=== PATIENT | male | born 1950 | race Caucasian/White ===

== ENCOUNTER 2016-02-24 15:30 | Inpatient (IN) | payer OTHER ==
[~2016-02-24] VITALS: Ht 185.4 cm; Wt 90.4 kg
[~2016-02-24 15:30] MED LIST: PRENATABS RX PO; TOPROL XL50 MG PO
--- NOTE | 2016-02-24 18:13 | DIAGNOSTIC IMAGING REPORT ---
PROCEDURE: CT HEAD WITHOUT CONTRAST INDICATION: Seizure. Altered mental status. History of EtOH. TECHNIQUE: Noncontrast axial images with sagittal and coronal reformations. COMPARISON: Compared to a head CT on 05/09/2015 and 05/05/2015. FINDINGS: There mild cortical atrophic changes. Brain and ventricles are otherwise normal. No evidence of an acute process or hemorrhage. Sinuses and mastoids are normal. IMPRESSION: 1. Negative head CT (mild atrophic changes). 2. Findings discussed with Dr. Juan David Salgado at [address] scans at this facility use dose modulation, iterative reconstruction, and/or weight-based dosing when appropriate to reduce radiation dose to as low as reasonably achievable.
--- NOTE | 2016-02-24 19:56 | ED ORDER SUMMARY ---
..... Patient: TORSTEN DOE OrderSheet [facility] VisitID: [id number] [place] [address] 66y, M Registration Date/Time: 02/24/2016 ORDER SHEET Weight: 95.2 kg (stated) Allergies: PCN GENERAL ORDERS: CBC w Diff Urgent (15:54 02/24/2016 Filomena Easton) (Ack 15:56 Larissaa ER Tech1) (16:06 MWinterer R.N.) CMP Urgent (15:54 02/24/2016 Filomena Easton) (Ack 15:56 RICHARDurca ER Tech1) (16:06 MWinterer R.N.) UA-Culture if indicated Urgent (15:54 02/24/2016 Filomena Easton) (Ack 15:56 Larissaa ER Tech1) (17:34 MWinterer R.N.) Amylase Urgent (15:54 02/24/2016 Fliomena Easton) (Ack 15:56 RICHARDurca ER Tech1) (16:06 MWinterer R.N.) Lipase Urgent (15:54 02/24/2016 Filomena Easton) (Ack 15:56 Larissaa ER Tech1) (16:06 MWinterer R.N.) Urine Drug Screen Urgent (15:54 02/24/2016 Filomena Easton) (Ack 15:56 Larissaa ER Tech1) (17:34 MWinterer R.N.) Ethyl Alcohol Urgent (15:54 02/24/2016 Filomena Easton) (Ack 15:56 RICHARDurca ER Tech1) (16:06 MWinterer R.N.) CT Head wo Cont (Seizure) Urgent (17:26 02/24/2016 Filomena Easton) (Ack 17:28 RICHARDurca ER Tech1) (17:59 MWinterer R.N.) MEDICATION ORDERS: IV FLUIDS: IV NS : initial bolus none -, then 1000 mL/hr for X1 (NOW) (15:53 02/24/2016 Filomena Easton) (Ack 16:33 MWinterer R.N.) (16:44 MWinterer R.N.) Ativan IV 1 mg (HIGH ALERT MEDICATION, NOW) (15:54 02/24/2016 Filomena Easton) (16:07 Kwabena Martins) ORDER SHEET NOTES: [Electronically signed by Juan David Salgado Dr. (21:38 02/24/2016)] [Electronically signed by Yossi Rosales R.N. (01:14 02/25/2016)] [Electronically locked/signed by Yossi Rosales R.N. (01:14 02/25/2016)]
--- NOTE | 2016-02-24 19:56 | ED ORDER SUMMARY ---
..... Patient: TORSTEN DOE OrderSheet [facility] VisitID: [id number] [place] [address] 66y, M Registration Date/Time: 02/24/2016 ORDER SHEET Weight: 95.2 kg (stated) Allergies: PCN GENERAL ORDERS: CBC w Diff Urgent (15:54 02/24/2016 Filomena Easton) (Ack 15:56 Larissaa ER Tech1) (16:06 MWinterer R.N.) CMP Urgent (15:54 02/24/2016 Filomena Easton) (Ack 15:56 RICHARDurca ER Tech1) (16:06 MWinterer R.N.) UA-Culture if indicated Urgent (15:54 02/24/2016 Filomena Easton) (Ack 15:56 Larissaa ER Tech1) (17:34 MWinterer R.N.) Amylase Urgent (15:54 02/24/2016 Filomena Easton) (Ack 15:56 RICHARDurca ER Tech1) (16:06 MWinterer R.N.) Lipase Urgent (15:54 02/24/2016 Filomena Easton) (Ack 15:56 Larissaa ER Tech1) (16:06 MWinterer R.N.) Urine Drug Screen Urgent (15:54 02/24/2016 Filomena Easton) (Ack 15:56 Larissaa ER Tech1) (17:34 MWinterer R.N.) Ethyl Alcohol Urgent (15:54 02/24/2016 Filomena Easton) (Ack 15:56 RICHARDurca ER Tech1) (16:06 MWinterer R.N.) CT Head wo Cont (Seizure) Urgent (17:26 02/24/2016 Filomena Easton) (Ack 17:28 RICHARDurca ER Tech1) (17:59 MWinterer R.N.) MEDICATION ORDERS: IV FLUIDS: IV NS : initial bolus none -, then 1000 mL/hr for X1 (NOW) (15:53 02/24/2016 Filomena Easton) (Ack 16:33 MWinterer R.N.) (16:44 MWinterer R.N.) Ativan IV 1 mg (HIGH ALERT MEDICATION, NOW) (15:54 02/24/2016 Filomena Easton) (16:07 Kwabena Martins) ORDER SHEET NOTES: [Electronically signed by Juan David Salgado Dr. (21:38 02/24/2016)] [Electronically signed by Yossi Rosales R.N. (01:14 02/25/2016)] [Electronically locked/signed by Yossi Rosales R.N. (01:14 02/25/2016)]
--- NOTE | 2016-02-24 19:56 | ED NURSING NOTES ---
Clinical Report - Nurses [facility] [address] [place] [address] 02/24/2016 15:29 Patient: TORSTEN DOE TRIAGE Triage time 15:37 Feb 24 2016. Acuity: LEVEL 3. Chief Complaint: SEIZURE (single episode). Alert. No acute distress. SHAYE COMA SCORE: [place] Coma Scale: 15- eyes open spontaneously (4); best verbal response- oriented x 4 (5); best motor response- obeys commands (6). --15:41 Tracee Casillas R.N. 15:37 02/24/16. BP: 147/88. HR: 113. RR: 18. O2 saturation: 93%. Temp: 99.9 F. Pain level now 0/10. --15:41 Tracee Casillas R.N. Weight: 95.2 kg stated. Height/Length: 73 inches Per Patient. BMI: 27.7. --15:36 Tracee Casillas R.N. Medications None. --15:40 Tracee Casillas R.N. Medication/allergy information source: the patient. --15:41 Tracee Casillas R.N. Allergies PCN. --15:40 Tracee Casillas R.N. History Arrived by EMS. Historian: patient. Primary physician (none). ( Witnessed Seizure at home by his . Post Ictal when EMS arrived. Hx of seizures.). This occurred just prior to arrival. 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 PAST MEDICAL HX: Seizures. Has not received seasonal influenza immunization. SOCIAL HX: Former smoker. Occasional alcohol use. History of drug use: marijuana. (6 months ago). No infectious disease exposure. FALL RISK ASSESSMENT: Fall risk assessment completed. No fall risk identified. NUTRITIONAL RISK ASSESSMENT: The nutritional risk assessment revealed no deficiencies. FUNCTIONAL ASSESSMENT: Functional assessment: no impairments noted. LEARNING NEEDS ASSESSMENT: The learning needs assessment revealed no barriers. SKIN INTEGRITY ASSESSMENT: Skin integrity risk assessment completed. No skin integrity risk identified. --15:41 Tracee Casillas R.N. PROBLEMS: Changed Mental Status. Abnormal Liver Function Test. Vertigo. Alcoholism. Lifestyle / Substance Problems. Alcohol Withdrawal. UTI - Urinary Tract Infection. Pancreatitis. Back Pain. Hypertension. Laceration. Insect Bite(s). Immunizations. Abscess. Tetanus Status. --15:40 Tracee Casillas R.N. ADDITIONAL SURGERIES: C5/C6 fusion. Laminectomy. Rotator Cuff Surgery. --15:40 Tracee Casillas R.N. Interventions ID band on patient. To room. --15:41 Tracee Casillas R.N. PHYSICAL ASSESSMENT GENERAL / NEURO / PSYCH: Oriented X 4. [place] Coma Scale: 15- eyes open spontaneously (4); best verbal response- oriented x 4 (5); best motor response- obeys commands (6). HEENT: Pupils equal, round and reactive to light. RESPIRATORY: Respirations not labored. CVS: Normal sinus rhythm noted. GI / : Bowel sounds within normal limits. SKIN: Skin is warm and dry. --20:20 Yossi Rosales R.N. NURSING PROGRESS NOTES Pulse oximeter and NIBP monitor placed on patient. Patient gowned. Reassurance given. Seizure precautions initiated. --15:41 Tracee Casillas R.N. Patient ready for evaluation- ED physician notified. --15:41 Tracee Casillas R.N. 16:06 02/24/2016 Site #1 started via IV in the right forearm with an 20g angiocath, with aseptic technique and good blood return; two attempts. Blood drawn: rainbow set. Labeled in the presence of the patient and sent to the lab. Saline lock flushed with 10 mL saline. --16:06 Millie Awad R.N. 16:07 02/24/2016 Ativan (LORazepam) IVP 1 mg given over 2 minute(s) via site #1. Allergies verified, confirmed 5 rights and sedative warning given to the patient. IV patency established. IV site checked: no pain, redness, or swelling. IV flushed thoroughly pre- and post-medication administration. IVP given by RN. --16:07 Millie Awad R.N. 16:44 02/24/2016 Started bag #1 1000 mL IV Fluids IV NS (Saline); at 999 mL/hr over 1 hour(s) via site #1 via IV pump. Allergies verified and confirmed 5 rights. IV patency established. IV site checked: no pain, redness, or swelling. IV flushed thoroughly pre- and post-medication administration. --16:44 Millie Awad R.N. 17:35 02/24/16. Checked patient name and birthdate: patient confirmed urine collected with return of yellow-colored clear urine; sample sent to lab. Specimen labeled in the presence of the patient. --17:35 Millie Awad R.N. 17:36 02/24/2016 IV Fluids IV NS Discontinued: bag #1 infused. Total amount infused: 1000 mL. IV patency established. IV site checked: no pain, redness, or swelling. IV flushed thoroughly. --17:51 Millie Awad R.N. 17:52 02/24/16. BP: 145/82 taken on the right arm, while sitting. HR: 114. RR: 18. O2 saturation: 97% on room air. Temp: 98.4 F. --17:54 Usman Peter 19:28 02/24/16. BP: 115/76. HR: 109. RR: 15. O2 saturation: 95%. Temp: 98.6 F. Pain level now: 0/10. --19:29 Millie Awad R.N. ( pt resting in bed eating butter finger). --19:51 Yossi Rosales R.N. 19:51 02/24/16. BP: 156/80. HR: 117. O2 saturation: 100%. --19:51 Yossi Rosales R.N. DISPOSITION / DISCHARGE Admitted. --21:29 Yossi Rosales R.N. 21:28 02/24/16. BP: 136/88. HR: 107. RR: 20. O2 saturation: 97%. Temp: 98.5 F. Pain level now 0/10. --21:29 Yossi Rosales R.N. Report was given to a nurse in person. Report included patient's care, treatment, medications, reviewed medication reconcilliation, and condition (including any recent changes or anticipated changes). All questions were answered. Report was acknowledged. ( Pt to be admitted verbalized understanding). --21:46 Yossi Rosales R.N. Departure time: 22:11. Transported via stretcher by transport team. --22:11 Laurie Joe R.N. Locked/Released at 02/25/2016 1:14 by Yossi Rosales R.N.
--- NOTE | 2016-02-24 19:56 | ED CLINICAL REPORT ---
Clinical Report - Physicians/Mid Levels [facility] [address] [place] [address] 02/24/2016 15:29 Patient: TORSTEN DOE Time Seen: 15:53; initial patient contact. Arrived- By ambulance. Historian- patient and family. HISTORY OF PRESENT ILLNESS Chief Complaint: SINGLE SEIZURE. This occurred just prior to arrival. Patient was last known well (this AM). The patient has recovered. Seizure was witnessed. Had a single isolated seizure. Generalized motor activity observed. Post-ictally has had confusion. No speech difficulty post-ictally, weakness post-ictally, numbness post-ictally or headache post-ictally. No injuries noted. The patient has had moderate alcohol consumption recently. Last drink was less than 12 hours ago. Similar symptoms previously: Several times. Recent medical care: Not recently seen/assessed. REVIEW OF SYSTEMS No fever, chest pain, palpitations, difficulty breathing or nausea. No vomiting, back pain, neck pain, alteration in mental status or headache. No head injury. He had seizure activity. All systems otherwise negative, except as recorded above. PAST HISTORY ( Changed Mental Status. Abnormal Liver Function Test. Vertigo. Alcoholism. Lifestyle / Substance Problems. Alcohol Withdrawal. UTI - Urinary Tract Infection. Pancreatitis. Back Pain. Hypertension. Laceration. Insect Bite(s). Immunizations. Abscess. Tetanus Status. SURGERIES: C5/C6 fusion. Laminectomy. Rotator Cuff Surgery.). Medications: None. Allergies: PCN. SOCIAL HISTORY Former smoker. Alcohol use. Patient is a longstanding alcoholic. History of drug use: marijuana. FAMILY HISTORY No history of seizure disorder. ADDITIONAL NOTES The nursing notes have been reviewed with agreement regarding the chief complaint, PMH and patient medications and allergies. PHYSICAL EXAM Appearance: No acute distress. Appears post-ictal. No odor of alcohol. Eyes: Pupils equal, round and reactive to light. No nystagmus. Extraocular movements normal. ENT: Normal ENT inspection. Moist mucous membranes. Neck: Normal inspection. Neck supple. CVS: Normal heart rate and rhythm. Heart sounds normal. Respiratory: No respiratory distress. Breath sounds normal. Abdomen: Soft and nontender. No organomegaly. Back: Normal inspection. Skin: Skin warm and dry. Normal skin color. No rash. Extremities: No lower extremity edema. Neuro: Alert. Oriented X 3. Mood/affect normal. Speech normal. Cranial nerves normal (as tested). No cerebellar findings. No motor deficit. No sensory deficit. Reflexes normal. LABS, X-RAYS, AND EKG CT Head: (1. Negative head CT (mild atrophic changes).). Head CT performed without contrast. Prior studies were not available for comparison. The study was interpreted by the radiologist and discussed with the radiologist. Interpretation time: 1809. Laboratory Tests: UA-Culture if indicated: (COBY: 02/24/2016 17:25) ( MsgRcvd 02/24/2016 18:06) Final results Test Result Flag Units (Reference) URINE COLOR YELLOW URINE APPEARANCE CLEAR URINE GLUCOSE NEGATIVE (NEGATIVE) URINE BILIRUBIN NEGATIVE (NEGATIVE) URINE KETONE TRACE (NEGATIVE) URINE SPECIFIC GRAVITY 1.020 (1.010-1.030) URINE PH 7.0 (5.0-8.0) URINE PROTEIN NEGATIVE (NEGATIVE) URINE UROBILINOGEN 1.0 EU/dL (0.2-1.0) URINE NITRITE NEGATIVE (NEGATIVE) URINE BLOOD TRACE-LYSED (NEGATIVE) URINE LEUK ESTERASE NEGATIVE (NEGATIVE) URINE RBC 0-1 rbc/hpf (0-1) URINE WBC RARE wbc/hpf (0-1) URINE EPITHELIAL CELLS RARE EPI/hpf (0-5) URINE BACTERIA NONE SEEN (NONE SEEN) URINE COMMENT CULT NOT INDICATED 1+ MUCUSURINE CULTURES ARE SET-UP BASED ON THE FOLLOWING CRITERIA:POSITIVE NITRITEPOSITIVE LEUKOCYTE ESTERASEGREATER THAN 10 WHITE BLOOD CELLSMODERATE (2+) OR GREATER BACTERIA CBC w Diff: (COBY: 02/24/2016 16:05) ( MsgRcvd 02/24/2016 16:13) Final results Test Result Flag Units (Reference) WHITE BLOOD COUNT 3.3 L K/uL (4.5-11.5) RED BLOOD COUNT 4.24 L M/uL (4.50-5.90) HEMOGLOBIN 13.9 gm/dL (13.5-17.5) HEMATOCRIT 41.2 % (41.0-53.0) MEAN CELL VOLUME 97 fL (80-100) MEAN CORPUSCULAR HGB 33 pg (26-34) MEAN CORPUSCULAR HGB CONC 34 g/dL (31-37) RED CELL DISTRIBUTION WIDTH 16.1 H % (11.6-14.8) PLATELET COUNT 158 K/uL (150-400) NEUTROPHIL % 62.8 % (50-75) LYMPH % 22.4 L % (25-40) MONO % 13.0 % (3-14) EOSINOPHIL % 0.8 % (0-4) BASOPHIL % 1.0 % (0-2) Urine Drug Screen: (COBY: 02/24/2016 17:25) ( MsgRcvd 02/24/2016 18:27) Final results Test Result Flag Units (Reference) AMPHETAMINE/METHAMPHETAMINE NEGATIVE (NEGATIVE) BARBITURATE NEGATIVE (NEGATIVE) BENZODIAZEPINE NEGATIVE (NEGATIVE) CANNABINOID POSITIVE H (NEGATIVE) COCAINE NEGATIVE (NEGATIVE) ECSTASY NEGATIVE (NEGATIVE) METHADONE NEGATIVE (NEGATIVE) OPIATE NEGATIVE (NEGATIVE) The urine drug screen is a qualitative screening test fordrug overdose and abuse. All screen results should beconsidered as presumptive.Drugs screened for are as follows:BenzodiazepinesCocaineAmphetamines/MetamphetaminesTHC (Tetrahydrocannabinol)OpiatesBarbituratesEcstasyMethadonePositive results are unconfirmed. For confirmation, notifythe lab for the specimen to be sent to the reference lab.All confirmations must be performed by a differentmethodology.The ingestion of natural herbal and plant productscontaining Ephedra/Ephedra metabolites can produce in urineone or more substances capable of cross reacting withamphetamine/methamphetamine immunoassays. These testsprovide a preliminary result only. A more specificalternative chemical method must be used to obtain aconfirmed analytical result. CMP: (COBY: 02/24/2016 16:05) ( [facility] [place] 02/24/2016 16:27) Final results Test Result Flag Units (Reference) GLUCOSE 171 H mg/dL (70-110) BUN 11 mg/dL (7-18) CREATININE 1.0 mg/dL (0.6-1.3) Estimated GFR >60 mL/min Estimated GFR- >60 mL/min Note: Persistent reduction over 3 months in eGFR<60 mL/min/1.73 m2 defines CKD. Patients with eGFR values>=60 mL/min/1.73 m2 may also have CKD if evidence ofpersistent proteinuria. Additional information may be foundat www.kidney.org. SODIUM 138 mmol/L (136-145) POTASSIUM 3.0 L mmol/L (3.5-5.1) CHLORIDE 96 L mmol/L (98-107) CARBON DIOXIDE 30 mmol/L (21-32) CALCIUM 8.5 mg/dL (8.5-10.1) TOTAL PROTEIN 7.3 g/dL (6.4-8.2) ALBUMIN 3.6 g/dL (3.3-5.0) BILIRUBIN, TOTAL 0.9 mg/dL (0.0-1.0) ALKALINE PHOSPHATASE 104 U/L (46-116) AST (SGOT) 462 H U/L (15-37) ALT (SGPT) 355 H U/L (12-78) LIPASE 941 H U/L (73-393) AMYLASE 89 U/L (25-115) ETHYL ALCOHOL <3 L mg/dL (3-10) . PROGRESS AND PROCEDURES Discussed case with hospitalist, (call returned 19:50 Dr. Alfred). Agreed upon treatment plan and decision to place in observation. Health care provider will see patient in hospital. Disposition: Condition: good and stable. CLINICAL IMPRESSION 02/24/2016 19:28 BP: 115/76. HR: 109. RR: 15. O2 saturation: 95%. Temp: 98.6 F. Pain level now: 0/10. Generalized seizure associated with alcohol withdrawal.No history of poorly controlled epilepsy, history of epilepsy that is treatment resistant or status epilepticus. Vital Signs: have been reviewed. Blood pressure normal. Tachycardic. Respiratory rate normal. Temperature normal. Oxygen saturation normal. Abnormal liver function test: AST/SGOT and ALT/SGPT. (Electronically signed by Juan David Salgado Dr. 02/24/2016 21:38)
--- NOTE | 2016-02-24 19:56 | ED NURSING NOTES ---
Clinical Report - Nurses [facility] [address] [place] [address] 02/24/2016 15:29 Patient: TORSTEN DOE TRIAGE Triage time 15:37 Feb 24 2016. Acuity: LEVEL 3. Chief Complaint: SEIZURE (single episode). Alert. No acute distress. SHAYE COMA SCORE: [place] Coma Scale: 15- eyes open spontaneously (4); best verbal response- oriented x 4 (5); best motor response- obeys commands (6). --15:41 Tracee Casillas R.N. 15:37 02/24/16. BP: 147/88. HR: 113. RR: 18. O2 saturation: 93%. Temp: 99.9 F. Pain level now 0/10. --15:41 Tracee Casillas R.N. Weight: 95.2 kg stated. Height/Length: 73 inches Per Patient. BMI: 27.7. --15:36 Tracee Casillas R.N. Medications None. --15:40 Tracee Casillas R.N. Medication/allergy information source: the patient. --15:41 Tracee Casillas R.N. Allergies PCN. --15:40 Tracee Casillas R.N. History Arrived by EMS. Historian: patient. Primary physician (none). ( Witnessed Seizure at home by his . Post Ictal when EMS arrived. Hx of seizures.). This occurred just prior to arrival. 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 PAST MEDICAL HX: Seizures. Has not received seasonal influenza immunization. SOCIAL HX: Former smoker. Occasional alcohol use. History of drug use: marijuana. (6 months ago). No infectious disease exposure. FALL RISK ASSESSMENT: Fall risk assessment completed. No fall risk identified. NUTRITIONAL RISK ASSESSMENT: The nutritional risk assessment revealed no deficiencies. FUNCTIONAL ASSESSMENT: Functional assessment: no impairments noted. LEARNING NEEDS ASSESSMENT: The learning needs assessment revealed no barriers. SKIN INTEGRITY ASSESSMENT: Skin integrity risk assessment completed. No skin integrity risk identified. --15:41 Tracee Casillas R.N. PROBLEMS: Changed Mental Status. Abnormal Liver Function Test. Vertigo. Alcoholism. Lifestyle / Substance Problems. Alcohol Withdrawal. UTI - Urinary Tract Infection. Pancreatitis. Back Pain. Hypertension. Laceration. Insect Bite(s). Immunizations. Abscess. Tetanus Status. --15:40 Tracee Casillas R.N. ADDITIONAL SURGERIES: C5/C6 fusion. Laminectomy. Rotator Cuff Surgery. --15:40 Tracee Casillas R.N. Interventions ID band on patient. To room. --15:41 Tracee Casillas R.N. PHYSICAL ASSESSMENT GENERAL / NEURO / PSYCH: Oriented X 4. [place] Coma Scale: 15- eyes open spontaneously (4); best verbal response- oriented x 4 (5); best motor response- obeys commands (6). HEENT: Pupils equal, round and reactive to light. RESPIRATORY: Respirations not labored. CVS: Normal sinus rhythm noted. GI / : Bowel sounds within normal limits. SKIN: Skin is warm and dry. --20:20 Yossi Rosales R.N. NURSING PROGRESS NOTES Pulse oximeter and NIBP monitor placed on patient. Patient gowned. Reassurance given. Seizure precautions initiated. --15:41 Tracee Casillas R.N. Patient ready for evaluation- ED physician notified. --15:41 Tracee Casillas R.N. 16:06 02/24/2016 Site #1 started via IV in the right forearm with an 20g angiocath, with aseptic technique and good blood return; two attempts. Blood drawn: rainbow set. Labeled in the presence of the patient and sent to the lab. Saline lock flushed with 10 mL saline. --16:06 Millie Awad R.N. 16:07 02/24/2016 Ativan (LORazepam) IVP 1 mg given over 2 minute(s) via site #1. Allergies verified, confirmed 5 rights and sedative warning given to the patient. IV patency established. IV site checked: no pain, redness, or swelling. IV flushed thoroughly pre- and post-medication administration. IVP given by RN. --16:07 Millie Awad R.N. 16:44 02/24/2016 Started bag #1 1000 mL IV Fluids IV NS (Saline); at 999 mL/hr over 1 hour(s) via site #1 via IV pump. Allergies verified and confirmed 5 rights. IV patency established. IV site checked: no pain, redness, or swelling. IV flushed thoroughly pre- and post-medication administration. --16:44 Millie Awad R.N. 17:35 02/24/16. Checked patient name and birthdate: patient confirmed urine collected with return of yellow-colored clear urine; sample sent to lab. Specimen labeled in the presence of the patient. --17:35 Millie Awad R.N. 17:36 02/24/2016 IV Fluids IV NS Discontinued: bag #1 infused. Total amount infused: 1000 mL. IV patency established. IV site checked: no pain, redness, or swelling. IV flushed thoroughly. --17:51 Millie Awad R.N. 17:52 02/24/16. BP: 145/82 taken on the right arm, while sitting. HR: 114. RR: 18. O2 saturation: 97% on room air. Temp: 98.4 F. --17:54 Usman Peter 19:28 02/24/16. BP: 115/76. HR: 109. RR: 15. O2 saturation: 95%. Temp: 98.6 F. Pain level now: 0/10. --19:29 Millie Awad R.N. ( pt resting in bed eating butter finger). --19:51 Yossi Rosales R.N. 19:51 02/24/16. BP: 156/80. HR: 117. O2 saturation: 100%. --19:51 Yossi Rosales R.N. DISPOSITION / DISCHARGE Admitted. --21:29 Yossi Rosales R.N. 21:28 02/24/16. BP: 136/88. HR: 107. RR: 20. O2 saturation: 97%. Temp: 98.5 F. Pain level now 0/10. --21:29 Yossi Rosales R.N. Report was given to a nurse in person. Report included patient's care, treatment, medications, reviewed medication reconcilliation, and condition (including any recent changes or anticipated changes). All questions were answered. Report was acknowledged. ( Pt to be admitted verbalized understanding). --21:46 Yossi Rosales R.N. Departure time: 22:11. Transported via stretcher by transport team. --22:11 Laurie Joe R.N. Locked/Released at 02/25/2016 1:14 by Yossi Rosales R.N.
[2016-02-24 22:26] VITALS: BP 149/95
--- NOTE | 2016-02-24 23:23 | HISTORY AND PHYSICAL ---
ADMITTED: 02/24/2016 CHIEF COMPLAINT: 1. Seizure HISTORY OF PRESENT ILLNESS: This is a 66-year-old alcoholic with a history of alcohol withdrawal seizures who was sitting on the couch this evening and, per his , had a seizure. The patient states that he was watching his and then has no memory of what happened until approximately an hour later when he remembers being in the emergency department. Per this patient's , he was sitting on the couch watching TV when she started noticing tonic-clonic motion that lasted a couple of minutes. He did not lose bowel or bladder control; however, did have postictal state, including confusion , after the seizure which then cleared while in the emergency department in an appropriate amount of time. The patient denies ever having blackouts in the past; however, he has had a couple of alcohol withdrawal seizures. The patient states that he goes through a fifth every 2 days and has for the last 4-5 months. Four to five months ago, he had gone several months without alcohol and then relapsed. He has been drinking this amount of alcohol for several years. MEDICAL/SURGICAL HISTORY: Past medical history of alcohol abuse with a history of seizures, history of pancreatitis, and history of hypertension. Surgical history: C5-C6 fusion. Two lumbar surgeries including a laminectomy. Rotator cuff surgery. MEDICATIONS: 1. None. ALLERGIES: 1. PENICILLIN. SOCIAL HISTORY: The patient denies any recent drug or alcohol use; however, does state that approximately once monthly he will smoke marijuana, but has not done this in several months. He states that he quit smoking cigarettes 10-15 years ago and at that time was smoking approximately half a pack a day and had done so for 10-15 years. FAMILY HISTORY: Noncontributory. REVIEW OF SYSTEMS: Official 12-point review of systems was negative, except as per HPI, and a rare cough that is now productive, and generalized musculoskeletal pain including low back pain. PHYSICAL EXAMINATION: VITAL SIGNS: Blood pressure is 147/88, pulse is 113, respiratory rate of 18, O2 saturation 93% on room air, temperature is 99.9 degrees Fahrenheit. GENERAL: This is a middle-aged male, sitting in bed in no apparent distress. HEENT: Head is atraumatic, normocephalic. Pupils are equal, round, and reactive to light with accommodation bilaterally. Extraocular muscles are intact bilaterally. Oropharynx is nonerythematous without exudates. NECK: Trachea is midline. There is no JVD. HEART: S1, S2, irregular rhythm, mildly tachycardic. No S3, S4, gallops or rubs. LUNGS: Clear to auscultation bilaterally. ABDOMEN: Soft, nontender, nondistended without masses. Bowel sounds are active. There is a 3 cm hepatomegaly noted. EXTREMITIES: No peripheral edema. NEUROLOGIC: CN II-XII are intact bilaterally with normal strength in upper and lower extremities bilaterally. LAB/IMAGING: White blood cell count of 3.3, hemoglobin of 13.9, hematocrit 41.2, platelets of 158. Sodium of 138, potassium of 3, chloride of 96, bicarbonate 30, BUN of 11, creatinine of 1.0, glucose of 171. AST of 462, ALT of 355, calcium of 8.5, total protein is 7.3, albumin of 3.6, total bilirubin 0.9, lipase of 941, alkaline phosphatase of 104, amylase of 189. Alcohol is less than 3. UA is negative. Urine toxicology did come back positive for HTC. Other studies: CT of the head is negative, except for mild atrophic cortical changes. IMPRESSION: This is a 66-year-old male with a history of alcohol abuse and withdrawal seizures, whose has been watering down his alcohol and he had a seizure, a classic tonic-clonic seizure, this evening. The patient is now alert and oriented and appropriate. PLAN: 1. Fluids, electrolytes, and nutrition: Will add on a magnesium and a phosphorus. Otherwise, the patient will be on seizure precautions and a clear liquid diet. 2. Substance abuse: The patient will be on alcohol withdrawal protocol and seizure precautions. He will be monitored very closely. I have added on an INR to further assess liver function. 3. Prophylaxis: The patient is only on clears; therefore, I have asked for gastrointestinal ulcer prophylaxis with famotidine. We will also do venous thrombosis prophylaxis with sequential compression devices. 4. CODE STATUS: FULL CODE.
[2016-02-24 23:34] VITALS: BP 173/93
[2016-02-24 23:35] VITALS: BP 143/86
[2016-02-24 23:41] VITALS: BP 140/79
[2016-02-25] VITALS (8 sets, daily range): BP systolic 122–143; BP diastolic 76–89
--- NOTE | 2016-02-25 01:15 | ED DISCHARGE INSTRUCTIONS ---
Patient: TORSTEN DOE General Instructions [facility] VisitID: [id number] [place] [address] 66y, M Registration Date/Time: 02/24/2016 02/24/2016 19:28 BP: 115/76. HR: 109. RR: 15. O2 saturation: 95%. Temp: 98.6 F. Pain level now: 0/10. Generalized seizure associated with alcohol withdrawal.No history of poorly controlled epilepsy, history of epilepsy that is treatment resistant or status epilepticus. Vital Signs: have been reviewed. Blood pressure normal. Tachycardic. Respiratory rate normal. Temperature normal. Oxygen saturation normal. Abnormal liver function test: AST/SGOT and ALT/SGPT. (Electronically signed by Juan David Salgado Dr. 02/24/2016 21:38)
--- NOTE | 2016-02-25 01:15 | ED MED RECONCILIATION SUMMARY ---
Patient: TORSTEN DOE Medication Reconciliation Report [facility] VisitID: [id number] [address] [place] [address] 66y, M Registration Date/Time: 02/24/2016 Weight: 95.2 kg Height/Length: 73 in. BMI: 27.7 ALLERGIES: PCN The patient's Home Medications are listed below: NONE. The source(s) of the original Home Medication information: patient The following Medications were given to the patient in the Emergency Department: Ativan [IVP] IVP 1 mg, administered: 02/24/2016 4:07:00 PM IV NS IV Fluids bolus 0, then 999 mL/hr, administered: 02/24/2016 4:44:00 PM The following Medications were prescribed to the patient: None.
--- NOTE | 2016-02-25 01:15 | ED DISCHARGE INSTRUCTIONS ---
Patient: TORSTEN DOE General Instructions [facility] VisitID: [id number] [place] [address] 66y, M Registration Date/Time: 02/24/2016 02/24/2016 19:28 BP: 115/76. HR: 109. RR: 15. O2 saturation: 95%. Temp: 98.6 F. Pain level now: 0/10. Generalized seizure associated with alcohol withdrawal.No history of poorly controlled epilepsy, history of epilepsy that is treatment resistant or status epilepticus. Vital Signs: have been reviewed. Blood pressure normal. Tachycardic. Respiratory rate normal. Temperature normal. Oxygen saturation normal. Abnormal liver function test: AST/SGOT and ALT/SGPT. (Electronically signed by Juan David Salgado Dr. 02/24/2016 21:38)
--- NOTE | 2016-02-25 01:15 | ED MED RECONCILIATION SUMMARY ---
Patient: TORSTEN DOE Medication Reconciliation Report [facility] VisitID: [id number] [address] [place] [address] 66y, M Registration Date/Time: 02/24/2016 Weight: 95.2 kg Height/Length: 73 in. BMI: 27.7 ALLERGIES: PCN The patient's Home Medications are listed below: NONE. The source(s) of the original Home Medication information: patient The following Medications were given to the patient in the Emergency Department: Ativan [IVP] IVP 1 mg, administered: 02/24/2016 4:07:00 PM IV NS IV Fluids bolus 0, then 999 mL/hr, administered: 02/24/2016 4:44:00 PM The following Medications were prescribed to the patient: None.
--- NOTE | 2016-02-25 01:15 | ED MAR SUMMARY ---
..... Medication Administration Record [facility] [address] [place] [address] Patient: TORSTEN DOE Visit ID: [id number] 66y, M Weight: 95.2 kg Height/Length: 73 in BMI: 27.7 ALLERGIES: PCN Given 16:07 02/24/2016 Millie Awad R.N. Medication Administered: ATIVAN [IVP] (LORAZEPAM), Dose: 1 mg IVP over 2 minute(s), Site: #1 right forearm. Medication Ordered: Ativan IV 1 mg (HIGH ALERT MEDICATION, NOW). Start 16:44 02/24/2016 Millie Awad RMarisol, Stop 17:36 02/24/2016 Millie Awad R.N. Medication Administered: IV NS (SALINE), Dose: IV Fluids over 1 hour(s), Rate: 999 mL/hr, Dispensed: 1000 mL bag, Site: #1 right forearm. Medication Ordered: IV NS : initial bolus none -, then 1000 mL/hr for X1 (NOW).
--- NOTE | 2016-02-25 01:15 | ED MAR SUMMARY ---
..... Medication Administration Record [facility] [address] [place] [address] Patient: TORSTEN DOE Visit ID: [id number] 66y, M Weight: 95.2 kg Height/Length: 73 in BMI: 27.7 ALLERGIES: PCN Given 16:07 02/24/2016 Millie Awad R.N. Medication Administered: ATIVAN [IVP] (LORAZEPAM), Dose: 1 mg IVP over 2 minute(s), Site: #1 right forearm. Medication Ordered: Ativan IV 1 mg (HIGH ALERT MEDICATION, NOW). Start 16:44 02/24/2016 Millie Awad RMarisol, Stop 17:36 02/24/2016 Millie Awad R.N. Medication Administered: IV NS (SALINE), Dose: IV Fluids over 1 hour(s), Rate: 999 mL/hr, Dispensed: 1000 mL bag, Site: #1 right forearm. Medication Ordered: IV NS : initial bolus none -, then 1000 mL/hr for X1 (NOW).
--- NOTE | 2016-02-25 07:29 | Progress Note ---
Subjective General Note Date: February 25, 2016 Admission Date: February 24, 2016 Hospital Day: 2 PCP: Unknown Status: Observation Advanced Directive: FULL CODE Room: 210-A Brief History: The patient is a 66-year-old white male with a significant past medical history of alcohol abuse/dependence, hypertension who presented to [facility] emergency department on the day of admission secondary to complaints of seizure. [facility] ER evaluation was consistent with findings of seizure probable alcohol withdrawal, alcohol abuse/dependence, elevated lipase. Secondary to the above, the patient was admitted by Joanna Alfred M.D. for further evaluation and treatment For other history present illness, past medical history, family history, social history, review of systems, and admission physical examination please see the patient's history and physical examination and ER visit note in the patient's medical record. Subjective: The patient is confused and lethargic this a.m. status post initiation of alcohol withdrawal protocol. Seizure noted last evening. No subsequent seizures. Patient requests: None Medications and Allergies Medications Current Medications Sig/Arun Start time Last Medication Dose Route Stop Time Status Admin Lorazepam 1 MG Q6H 02/27 0000 AC PO 02/27 1900 Lorazepam 1 MG Q6H 02/27 0000 AC IV 02/27 1900 Lorazepam 1 MG Q6H 02/26 0000 AC PO 02/26 1900 Lorazepam 1 MG Q6H 02/26 0000 AC IV 02/26 1900 Lorazepam 1 MG Q4H / 0000 AC PO 02/25 2100 Lorazepam 1 MG Q4H 02/25 0000 AC IV 02/25 2100 Influenza Virus 0.5 ML 0900 02/24 0900 AC Vaccine IM 02/24 1800 Multivit/ 1 TAB DAILY 02/24 0900 AC Folic Acid/Iron PO Thiamine HCl 100 MG DAILY 02/24 0900 AC PO Magnesium Sulfate 50 ML 0600 ONE 02/24 0600 AC 02/24 IV 02/24 0759 0551 Famotidine/Sodium 50 ML Q12HR 02/24 0130 AC 02/24 Chloride IV 0243 Lorazepam 2 MG Q6H 02/24 0015 AC PO 02/24 1900 Lorazepam 2 MG Q6H 02/24 0015 AC 02/24 IV 02/24 1900 0550 Lorazepam 0.5 MG Q30MIN PRN 02/24 0015 AC PO Lorazepam 0.5 MG Q30MIN PRN 02/24 0015 AC IV Diazepam 5 MG PRN PRN 02/23 2214 AC 02/23 IV 2328 Docusate Sodium 250 MG BID PRN 02/23 2214 AC PO Ondansetron HCl 4 MG Q6H PRN 02/23 2214 AC 02/24 IV 0139 Sodium Chloride 1,000 ML ASDIRECTED 02/23 2214 AC IV Allergies Coded Allergies: Codeine (PROBABLY NOT ALLERGIC, PER PT 02/24/16) Penicillins (RESPITORY ARREST 02/24/16) Physical Exam Vital Signs / I&Os Vital Signs Date Time Temp Pulse Resp B/P Pulse O2 O2 Flow FiO2 Ox Delivery Rate 02/24 0730 96.6 85 16 132/76 92 Room Air 0.0 02/24 0301 109 20 138/88 96 Room Air 02/24 0118 100.2 104 20 128/76 98 Room Air 02/24 0026 98.4 95 20 138/84 94 Room Air 02/23 2341 106 140/79 94 02/23 2335 107 143/86 97 02/23 2334 99.3 106 20 173/93 97 02/23 2226 98.4 94 16 149/95 96 Room Air I&O 02/24 0000 02/23 1600 02/23 0800 Intake Total Output Total Balance General Appearance No acute distress, lethargic, minimally interactive Lungs Clear to auscultation Cardiovascular Regular rate and rhythm, Normal S1 and S2 Abdomen Normal bowel sounds, Soft, No tenderness Extremities No cyanosis, No clubbing Neurological Cranial nerves intact, No lateralizing signs Psych/Mental Status Confused, lethargic, LAB Results Laboratory Tests 02/23 02/23 02/23 1725 1605 1555 Chemistry Plasma Sodium (136 - 145 mmol/L) 138 Plasma Potassium (3.5 - 5.1 mmol/L) 3.0 Plasma Chloride (98 - 107 mmol/L) 96 CO2 (Enzymatic) (21 - 32 mmol/L) 30 BUN (7 - 18 mg/dL) 11 Creatinine (0.6 - 1.3 mg/dL) 1.0 Est GFR ( Amer) (mL/min) >60 Est GFR (Non-Af Amer) (mL/min) >60 Glucose (70 - 110 mg/dL) 171 Hemoglobin A1c % (4.5 - 6.2 %) 5.9 Plasma Calcium (8.5 - 10.1 mg/dL) 8.5 Phosphorus (2.5 - 4.9 mg/dL) 2.4 Plasma Magnesium (1.8 - 2.4 mg/dL) 1.2 Total Bilirubin (0.0 - 1.0 mg/dL) 0.9 AST (15 - 37 U/L) 462 ALT (12 - 78 U/L) 355 Alkaline Phosphatase (46 - 116 U/L) 104 Total Protein (6.4 - 8.2 g/dL) 7.3 Albumin (3.3 - 5.0 g/dL) 3.6 Amylase (25 - 115 U/L) 89 Lipase (73 - 393 U/L) 941 TSH 3rd Generation (0.30 - 3.74 uIU/mL) 0.873 Coagulation INR (0.8 - 1.2) 0.9 Hematology WBC (4.5 - 11.5 K/uL) 3.3 RBC (4.50 - 5.90 M/uL) 4.24 Hgb (13.5 - 17.5 gm/dL) 13.9 Hct (41.0 - 53.0 %) 41.2 MCV (80 - 100 fL) 97 MCH (26 - 34 pg) 33 RDW (11.6 - 14.8 %) 16.1 Neut % (Auto) (50 - 75 %) 62.8 Lymph % (Auto) (25 - 40 %) 22.4 [place] % (Auto) (3 - 14 %) 13.0 Eos % (Auto) (0 - 4 %) 0.8 Baso % (Auto) (0 - 2 %) 1.0 Plt Count, EDTA (150 - 400 K/uL) 158 PUBS MCHC (31 - 37 g/dL) 34 Toxicology Urine Opiates Screen (NEGATIVE) NEGATIVE Urine Methadone Screen (NEGATIVE) NEGATIVE Ur Barbiturates Screen (NEGATIVE) NEGATIVE U Amphetamin/Meth Scrn (NEGATIVE) NEGATIVE MDMA (Ecstasy) Screen (NEGATIVE) NEGATIVE U Benzodiazepines Scrn (NEGATIVE) NEGATIVE Urine Cocaine Screen (NEGATIVE) NEGATIVE U Cannabinoids Screen (NEGATIVE) POSITIVE Plasma/Serum Ethyl Alc (3 - 10 mg/dL) <3 Urines Urine Color YELLOW Urine Appearance CLEAR Urine pH (5.0 - 8.0) 7.0 Ur Specific [place] (1.010 - 1.030) 1.020 Urine Protein (NEGATIVE) NEGATIVE Urine Ketones (NEGATIVE) TRACE Urine Blood (NEGATIVE) TRACE-LYSED Urine Nitrite (NEGATIVE) NEGATIVE Urine Bilirubin (NEGATIVE) NEGATIVE Urine Urobilinogen (0.2 - 1.0 EU/dL) 1.0 Ur Leukocyte Esterase (NEGATIVE) NEGATIVE Urine RBC (0 - 1 rbc/hpf) 0-1 Urine WBC (0 - 1 wbc/hpf) RARE Ur Epithelial Cells (0 - 5 EPI/hpf) RARE Urine Bacteria (NONE SEEN) NONE SEEN Urine Glucose (NEGATIVE) NEGATIVE Urine Comment CULT NOT INDICATED Assessment and Plan Problem List 1. Alcohol withdrawal Plan -Patient in the midst of alcohol withdrawal syndrome -Alcohol withdrawal protocol -Monitor 2. Hypokalemia Plan -Patient with findings of hypokalemia -KCl IV -Change IV fluids to supply K-Phos 3. Liver function abnormality Status Acute Onset Date Unknown Plan -Patient with liver function analysis -Probable alcoholic appetite is -Check ultrasound -Check hepatitis profile -Monitor 4. Hypertension Status Acute Onset Date Unknown Plan -Patient with history of hypertension -Monitor with appropriate antihypertensive therapy -Low-salt diet 5. Alcohol abuse Status Chronic Onset Date Unknown Plan -Patient with long-standing history of alcohol abuse -Patient in the midst of alcohol withdrawal syndrome -Probable alcohol withdrawal seizures -Encourage enrollment in alcohol treatment program post detox 6. Hypomagnesemia Status Acute Onset Date Unknown Plan -Resolved -Monitor 7. Hypophosphatemia Status Acute Onset Date Unknown Plan -Patient with admission findings of hypophosphatemia -Change IV fluids to K-Phos -Monitor Current status: Fair, unstable Anticipated discharge date: Anticipated discharge in 3-4 days Anticipated discharge placement: Home Patient care time: Time spent in chart review, patient interview, physical exam, CPOE, and care documentation: 35 minutes Visit to patient today: 2 Complexity of care: High E&M Codes Rounding: Inpt-High/[id number]
--- NOTE | 2016-02-25 20:18 | DIAGNOSTIC IMAGING REPORT ---
PROCEDURE: US ABDOMEN ULTRASOUND-COMPLETE INDICATION: Elevated lfts, pancreatitis?, Mild elevated lipase, nml zoie, initial encounter TECHNIQUE: Harris scale and color Doppler sonographic images of the abdomen were obtained. COMPARISON: CT abdomen/pelvis 01/29/2015 FINDINGS: Liver measures 24 cm with diffuse increased echogenicity. Normal pancreas, spleen and gallbladder. Normal CBD measures 4.5 mm. Aorta and IVC are patent. Hepatopetal flow in the portal vein. Normal kidneys. Right kidney measures 12.8 cm and left kidney 11.7 cm. IMPRESSION: 1. Hepatic steatosis versus intrinsic liver disease
[2016-02-26 03:46] VITALS: BP 142/78
[2016-02-26 06:56] VITALS: BP 134/83
--- NOTE | 2016-02-26 07:57 | Progress Note ---
Subjective General Note Date: February 26, 2016 Admission Date: February 24, 2016 Hospital Day: 3 PCP: Unknown Status: Observation Advanced Directive: FULL CODE Room: 210-A Brief History: The patient is a 66-year-old white male with a significant past medical history of alcohol abuse/dependence, hypertension who presented to [facility] emergency department on the day of admission secondary to complaints of seizure. [facility] ER evaluation was consistent with findings of seizure probable alcohol withdrawal, alcohol abuse/dependence, elevated lipase. Secondary to the above, the patient was admitted by Joanna Alfred M.D. for further evaluation and treatment For other history present illness, past medical history, family history, social history, review of systems, and admission physical examination please see the patient's history and physical examination and ER visit note in the patient's medical record. Subjective: Status improved today. No specific complaints at this time. Patient remains confused but less agitated and cooperative to exam today. Patient requests: None Medications and Allergies Medications Current Medications Sig/Arun Start time Last Medication Dose Route Stop Time Status Admin Lorazepam 1 MG Q6H 02/27 0000 AC PO 02/27 1900 Lorazepam 1 MG Q6H 02/27 0000 AC IV 02/27 1900 Lorazepam 1 MG Q6H 02/26 0000 AC PO 02/26 1900 Lorazepam 1 MG Q6H 02/26 0000 AC IV 02/26 1900 Lorazepam 1 MG Q4H 02/25 0000 AC PO 02/25 2100 Lorazepam 1 MG Q4H 02/25 0000 AC 02/25 IV 02/25 2100 0341 Potassium Phosphate 30 MEQ Q7H 02/24 1715 AC 02/25 Dextrose/Sodium 1,000 ML IV 0341 Chloride Multivit/ 1 TAB DAILY 02/24 0900 AC Folic Acid/Iron PO Thiamine HCl 100 MG DAILY 02/24 0900 AC PO Famotidine/Sodium 50 ML Q12HR 02/24 0130 AC 02/24 Chloride IV 2032 Lorazepam 0.5 MG Q30MIN PRN 02/24 0015 AC PO Lorazepam 0.5 MG Q30MIN PRN 02/24 0015 AC 02/25 IV 0635 Diazepam 5 MG PRN PRN 02/23 2215 AC 02/23 IV 2328 Docusate Sodium 250 MG BID PRN 02/23 221 AC PO Ondansetron HCl 4 MG Q6H PRN 02/23 2215 AC 02/24 IV 0139 Allergies Coded Allergies: Codeine (PROBABLY NOT ALLERGIC, PER PT 02/24/16) Penicillins (RESPITORY ARREST 02/24/16) Physical Exam Vital Signs / I&Os Vital Signs Date Time Temp Pulse Resp B/P Pulse O2 O2 Flow FiO2 Ox Delivery Rate 02/25 0656 98.1 82 18 134/83 98 Room Air 0.0 02/25 0346 98.2 96 18 142/78 98 Room Air 02/24 2242 98.2 95 18 143/80 98 Room Air 0.0 02/24 1834 98.4 98 16 122/82 98 02/24 1630 Room Air 02/24 1424 97.9 85 16 135/85 95 Room Air 0.0 02/24 1038 98.1 87 18 129/89 96 Room Air 0.0 02/24 0817 Room Air 0.0 I&O 02/25 0000 02/24 1600 02/24 0800 Intake Total 300 903 405 Output Total 200 200 Balance 300 703 205 General Appearance Cooperative, No acute distress, lethargic but easily arousable Lungs Clear to auscultation Cardiovascular Regular rate and rhythm, Normal S1 and S2 Abdomen Normal bowel sounds, Soft, No tenderness Extremities No cyanosis, No clubbing Neurological Cranial nerves intact, No lateralizing signs Psych/Mental Status Confused, slightly lethargic LAB Results Laboratory Tests 02/25 02/24 0602 0800 Chemistry Plasma Sodium (136 - 145 mmol/L) 143 137 Plasma Potassium (3.5 - 5.1 mmol/L) 3.1 3.6 Plasma Chloride (98 - 107 mmol/L) 106 101 CO2 (Enzymatic) (21 - 32 mmol/L) 28 26 BUN (7 - 18 mg/dL) 10 12 Creatinine (0.6 - 1.3 mg/dL) 0.9 0.6 Est GFR ( Amer) (mL/min) >60 >60 Est GFR (Non-Af Amer) (mL/min) >60 >60 Glucose (70 - 110 mg/dL) 151 114 Plasma Calcium (8.5 - 10.1 mg/dL) 7.8 7.7 Phosphorus (2.5 - 4.9 mg/dL) 3.8 1.6 Plasma Magnesium (1.8 - 2.4 mg/dL) 1.9 2.9 Total Bilirubin (0.0 - 1.0 mg/dL) 0.8 1.2 AST (15 - 37 U/L) 183 322 ALT (12 - 78 U/L) 207 271 Alkaline Phosphatase (46 - 116 U/L) 77 85 Total Protein (6.4 - 8.2 g/dL) 5.6 6.0 Albumin (3.3 - 5.0 g/dL) 2.9 3.1 Amylase (25 - 115 U/L) 69 Lipase (73 - 393 U/L) 668 Hematology WBC (4.5 - 11.5 K/uL) 3.2 3.9 RBC (4.50 - 5.90 M/uL) 3.52 4.11 Hgb (13.5 - 17.5 gm/dL) 11.7 13.2 Hct (41.0 - 53.0 %) 34.8 41.4 MCV (80 - 100 fL) 99 101 MCH (26 - 34 pg) 33 32 RDW (11.6 - 14.8 %) 16.6 16.6 Gran % 58.5 Neut % (Auto) (50 - 75 %) 48.9 Lymph % (Auto) (25 - 40 %) 33.2 33.5 [place] % (Auto) (3 - 14 %) 13.9 8.0 Eos % (Auto) (0 - 4 %) 3.2 Baso % (Auto) (0 - 2 %) 0.8 Plt Count, EDTA (150 - 400 K/uL) 130 111 PUBS MCHC (31 - 37 g/dL) 34 32 Serology Hepatitis A IgM Ab Pending Hep Bs Antigen Pending Hep B Core IgM Ab Pending Hepatitis C Antibody Pending Assessment and Plan Problem List 1. Alcohol withdrawal Plan -Patient remains confused but with improved mental status, decreased agitation -Altered mental status as above -Continue alcohol withdrawal protocol -Anticipated discharge in 2-3 days 2. Altered mental status Plan -See above -Patient was agitated -Patient remains confused with slight lethargy on alcohol withdrawal protocol -Able to answer simple questions intermittently appropriate 3. Hypokalemia Plan -Mild hypokalemia -Potassium 3.1 this a.m. -IV/oral supplementation -We'll give KCl 40 mEq IV this a.m. -Monitor 4. Liver function abnormality Status Acute Onset Date Unknown Plan -Improved -Await hepatitis profile -Ultrasound shows hepatic steatosis versus intrinsic liver disease -Monitor 5. Hypertension Status Acute Onset Date Unknown Plan -Blood pressure well controlled -BP this a.m. 134/83 mmHg -Monitor 6. Alcohol abuse Status Chronic Onset Date Unknown Plan -Patient with long-standing alcohol abuse -Currently experiencing alcohol withdrawal syndrome -Encourage enrollment in alcohol treatment program post hospitalization -Monitor 7. Seizure due to alcohol withdrawal Plan -No recent seizures -Monitor 8. Hypomagnesemia Status Acute Onset Date Unknown Plan -Resolved -Magnesium 1.9 today. -Monitor 9. Hypophosphatemia Status Acute Onset Date Unknown Plan -Resolved -Phosphate level 3.8 today. -Monitor Current status: Fair, improved Anticipated discharge date: Anticipated discharge in 2-3 days Anticipated discharge placement: Home Patient care time: Time spent in chart review, patient interview, physical exam, CPOE, and care documentation: 35 minutes Visit to patient today: 1 Complexity of care: High E&M Codes Rounding: Inpt-High/[id number]
[2016-02-26 10:46] VITALS: BP 134/70
[2016-02-26 14:30] VITALS: BP 140/87
[2016-02-26 18:20] VITALS: BP 128/78
[2016-02-26 23:35] VITALS: BP 160/107
[2016-02-27 03:27] VITALS: BP 157/80
[2016-02-27 06:43] VITALS: BP 145/72
[2016-02-27 11:20] VITALS: BP 164/112
[2016-02-27 12:51] VITALS: BP 156/99
--- NOTE | 2016-02-27 16:52 | Progress Note ---
Subjective General Note Date: February 27, 2016 Admission Date: February 24, 2016 Hospital Day: 4 PCP: Unknown Status: Observation Advanced Directive: FULL CODE Room: 210-A Brief History: The patient is a 66-year-old white male with a significant past medical history of alcohol abuse/dependence, hypertension who presented to [facility] emergency department on the day of admission secondary to complaints of seizure. [facility] ER evaluation was consistent with findings of seizure probable alcohol withdrawal, alcohol abuse/dependence, elevated lipase. Secondary to the above, the patient was admitted by Joanna Alfred M.D. for further evaluation and treatment For other history present illness, past medical history, family history, social history, review of systems, and admission physical examination please see the patient's history and physical examination and ER visit note in the patient's medical record. Subjective: Status improved today. No specific complaints at this time. Patient remains confused but less agitated and cooperative to exam today. Ambulating some at this time Patient requests: None Medications and Allergies Medications Current Medications Sig/Arun Start time Last Medication Dose Route Stop Time Status Admin Lorazepam 1 MG Q6H 02/27 0000 AC PO 02/27 1900 Lorazepam 1 MG Q6H / 0000 AC IV 02/27 1900 Metoprolol Tartrate 50 MG Q8HR 02/26 1430 AC 02/26 PO 1434 Pantoprazole Sodium 40 MG DAILY@0600 02/26 1015 AC 02/26 Sesquihydrate PO 1122 Lorazepam 1 MG Q6H 02/26 0000 AC 02/26 PO 02/26 1900 1122 Lorazepam 1 MG Q6H 02/26 0000 AC IV 02/26 1900 Multivit/ 1 TAB DAILY 02/24 09 AC 02/26 Folic Acid/Iron PO 0850 Thiamine HCl 100 MG DAILY 02/24 09 AC 02/26 PO 0850 Diazepam 5 MG PRN PRN 02/23 2215 AC 02/23 IV 2328 Docusate Sodium 250 MG BID PRN 02/23 221 AC PO Ondansetron HCl 4 MG Q6H PRN 02/23 2215 AC 02/24 IV 0139 Allergies Coded Allergies: Codeine (PROBABLY NOT ALLERGIC, PER PT 02/24/16) Onion (02/27/16) Penicillins (RESPITORY ARREST 02/24/16) Physical Exam Vital Signs / I&Os Vital Signs Date Time Temp Pulse Resp B/P Pulse O2 O2 Flow FiO2 Ox Delivery Rate 02/26 1251 156/99 02/26 1120 98.2 98 20 164/112 98 Room Air 0.0 02/26 0741 98 02/26 0643 99.3 92 20 145/72 98 Room Air 0.0 02/26 0327 97.7 98 20 157/80 96 Room Air 02/25 2335 97.9 112 20 160/107 95 Room Air 02/25 1820 98.6 81 18 128/78 97 Room Air I&O 02/26 0000 02/25 1600 02/25 0800 Intake Total 50 1860 1690 Output Total Balance 50 1860 1690 General Appearance Cooperative, No acute distress, slightly lethargic, oriented to person place but not time Lungs Clear to auscultation Cardiovascular Regular rate and rhythm, Normal S1 and S2 Abdomen Normal bowel sounds, Soft, No tenderness Extremities No cyanosis, No clubbing, No edema Neurological Cranial nerves intact, No lateralizing signs Psych/Mental Status Confused LAB Results Laboratory Tests 02/27 604 Chemistry Plasma Sodium (136 - 145 mmol/L) 142 Plasma Potassium (3.5 - 5.1 mmol/L) 3.7 Plasma Chloride (98 - 107 mmol/L) 107 CO2 (Enzymatic) (21 - 32 mmol/L) 25 BUN (7 - 18 mg/dL) 11 Creatinine (0.6 - 1.3 mg/dL) 0.8 Est GFR ( Amer) (mL/min) >60 Est GFR (Non-Af Amer) (mL/min) >60 Glucose (70 - 110 mg/dL) 148 Plasma Calcium (8.5 - 10.1 mg/dL) 8.8 Phosphorus (2.5 - 4.9 mg/dL) 3.8 Plasma Magnesium (1.8 - 2.4 mg/dL) 1.9 Total Bilirubin (0.0 - 1.0 mg/dL) 0.6 AST (15 - 37 U/L) 155 ALT (12 - 78 U/L) 187 Alkaline Phosphatase (46 - 116 U/L) 85 Total Protein (6.4 - 8.2 g/dL) 6.5 Albumin (3.3 - 5.0 g/dL) 3.1 Lipase (73 - 393 U/L) 755 Assessment and Plan Problem List 1. Alcohol withdrawal Plan -Patient with findings of alcohol withdrawal -Symptoms improved today -No significant agitation. -Possible discharge in 1-2 days with improved status 2. Altered mental status Plan -Patient's mental status remains abnormal but improved -Remains confused but no associated agitation as noted above 3. Hypokalemia Plan -Resolved 4. Abnormal LFTs Plan -LFTs remain abnormal but improving -Recheck in a.m. -Final hepatitis screen negative for infectious hepatitis -Findings most consistent with alcoholic hepatitis-resolving 5. Hypomagnesemia Status Acute Onset Date Unknown Plan -Resolved -Magnesium 1.9 6. Hypophosphatemia Status Acute Onset Date Unknown Plan -Resolved -Phosphate 3.8 7. Seizure due to alcohol withdrawal Plan -No seizures since admission -No further evaluation at this time 8. Hypertension Status Acute Onset Date Unknown Plan -Blood pressure elevated -Lopressor 50 mg by mouth every 8 hours -Monitor -Low-salt diet Current status: Fair, improved Anticipated discharge date: Anticipated discharge in 1-2 days Anticipated discharge placement: Home Patient care time: Time spent in chart review, patient interview, physical exam, CPOE, and care documentation: 25 minutes Visit to patient today: 2 Complexity of care: Moderate E&M Codes Rounding: Inpt-Moderate/[id number]
[2016-02-27 20:36] VITALS: BP 151/90
[2016-02-28 02:04] VITALS: BP 152/72
[2016-02-28 06:05] VITALS: BP 164/96
--- NOTE | 2016-02-28 08:41 | Discharge Summary ---
Discharge Summary Report Admit Date 02/25/16 Discharge Date 02/28/16 Admission Diagnosis 1. Seizures-alcohol withdrawal 2. Alcohol abuse/dependence 3. Alcohol withdrawal syndrome 4. Alcoholic hepatitis 5. Hypokalemia 6. Hypomagnesemia 7. Hypophosphatemia 8. Hypertension Discharge Diagnosis 1. Seizures-alcohol withdrawal 2. Alcohol abuse/dependence 3. Alcohol withdrawal syndrome 4. Alcoholic hepatitis 5. Hypokalemia-resolved 6. Hypomagnesemia-resolved 7. Hypophosphatemia-resolved 8. Hypertension Brief History he patient is a 66-year-old white male with a significant past medical history of alcohol abuse/dependence, hypertension who presented to [facility] emergency department on the day of admission secondary to complaints of seizure. [facility] ER evaluation was consistent with findings of seizure probable alcohol withdrawal, alcohol abuse/dependence, elevated lipase. Secondary to the above, the patient was admitted by Joanna Alfred M.D. for further evaluation and treatment For other history present illness, past medical history, family history, social history, review of systems, and admission physical examination please see the patient's history and physical examination and ER visit note in the patient's medical record. Hospital Course The following problems and their management were noted during the patient's hospitalization: 1. Seizures-alcohol withdrawal The patient presented with history of [id number]. These were felt secondary to alcohol withdrawal. Resolved following admission and were not present throughout the remainder of the patient's hospitalization. CT scan was negative for abnormalities. Patient advised to pursue a alcohol abstinence program post hospitalization 2. Alcohol abuse/dependence Patient presented with history of alcohol abuse/dependence. Advised to follow treatment program post hospitalization with enrollment in AA. 3. Alcohol withdrawal syndrome The patient experienced alcohol withdrawal syndrome during his hospital stay. History with alcohol withdrawal protocol. No signs of alcohol withdrawal at the time of discharge. Patient advised to pursue a alcohol treatment program AA post discharge 4. Alcoholic hepatitis The patient was noted to have liver function abnormalities during his hospital stay. Abdominal ultrasound was unremarkable other than hepatic steatosis. Hepatitis profile was unremarkable. It was felt his findings were most consistent with alcoholic hepatitis. This was associated with mild elevation of lipase with normal amylase. No signs of pancreatitis during the patient's hospitalization. He was advised to pursue a alcohol abstinence program post discharge. He should have follow-up liver function tests in 2-4 weeks. 5. Hypokalemia-resolved The patient exhibited hypokalemia during his hospital stay. This resolved during his hospital stay and required no treatment at discharge 6. Hypomagnesemia-resolved The patient was noted to have findings of hypomagnesemia during his hospital stay. This resolved during his hospital stay. He required no treatment at time of discharge. 7. Hypophosphatemia-resolved The patient was noted to have findings of hypophosphatemia. This resolved during his hospital stay. He required no treatment at the time of discharge 8. Hypertension The patient was noted to have findings of hypertension during his hospital stay. He was treated with Toprol-XL 75 mg by mouth twice a day and Cozaar 25 mg by mouth daily. He will follow-up with his PCP next week for blood pressure check. Low-salt diet on discharge. General Appearance Alert, Oriented X3, Cooperative, No acute distress Lungs Clear to auscultation, Normal air movement Cardiovascular Regular Rate, Normal S1, Normal S2 Abdomen Soft, No tenderness Neurological grossly normal Psych/Mental Status Mental status NL, Mood NL Discharge Instructions/Meds For other recommendations regarding discharge diet, activity, followup, and discharge medications please see the patient's discharge instructions. Discharge condition: Fair, improved Greater than 30 min. was spent in the patient's discharge preparation including discharge interview and physical examination, progress note, discharge instructions, and discharge summary The patient was interviewed and examined on the day of discharge. E&M Codes Discharge: Inpt >30 min spent/[id number]
--- NOTE | 2016-02-28 08:41 | Discharge Summary ---
Discharge Summary Report Admit Date 02/25/16 Discharge Date 02/28/16 Admission Diagnosis 1. Seizures-alcohol withdrawal 2. Alcohol abuse/dependence 3. Alcohol withdrawal syndrome 4. Alcoholic hepatitis 5. Hypokalemia 6. Hypomagnesemia 7. Hypophosphatemia 8. Hypertension Discharge Diagnosis 1. Seizures-alcohol withdrawal 2. Alcohol abuse/dependence 3. Alcohol withdrawal syndrome 4. Alcoholic hepatitis 5. Hypokalemia-resolved 6. Hypomagnesemia-resolved 7. Hypophosphatemia-resolved 8. Hypertension Brief History he patient is a 66-year-old white male with a significant past medical history of alcohol abuse/dependence, hypertension who presented to [facility] emergency department on the day of admission secondary to complaints of seizure. [facility] ER evaluation was consistent with findings of seizure probable alcohol withdrawal, alcohol abuse/dependence, elevated lipase. Secondary to the above, the patient was admitted by Joanna Alfred M.D. for further evaluation and treatment For other history present illness, past medical history, family history, social history, review of systems, and admission physical examination please see the patient's history and physical examination and ER visit note in the patient's medical record. Hospital Course The following problems and their management were noted during the patient's hospitalization: 1. Seizures-alcohol withdrawal The patient presented with history of [id number]. These were felt secondary to alcohol withdrawal. Resolved following admission and were not present throughout the remainder of the patient's hospitalization. CT scan was negative for abnormalities. Patient advised to pursue a alcohol abstinence program post hospitalization 2. Alcohol abuse/dependence Patient presented with history of alcohol abuse/dependence. Advised to follow treatment program post hospitalization with enrollment in AA. 3. Alcohol withdrawal syndrome The patient experienced alcohol withdrawal syndrome during his hospital stay. History with alcohol withdrawal protocol. No signs of alcohol withdrawal at the time of discharge. Patient advised to pursue a alcohol treatment program AA post discharge 4. Alcoholic hepatitis The patient was noted to have liver function abnormalities during his hospital stay. Abdominal ultrasound was unremarkable other than hepatic steatosis. Hepatitis profile was unremarkable. It was felt his findings were most consistent with alcoholic hepatitis. This was associated with mild elevation of lipase with normal amylase. No signs of pancreatitis during the patient's hospitalization. He was advised to pursue a alcohol abstinence program post discharge. He should have follow-up liver function tests in 2-4 weeks. 5. Hypokalemia-resolved The patient exhibited hypokalemia during his hospital stay. This resolved during his hospital stay and required no treatment at discharge 6. Hypomagnesemia-resolved The patient was noted to have findings of hypomagnesemia during his hospital stay. This resolved during his hospital stay. He required no treatment at time of discharge. 7. Hypophosphatemia-resolved The patient was noted to have findings of hypophosphatemia. This resolved during his hospital stay. He required no treatment at the time of discharge 8. Hypertension The patient was noted to have findings of hypertension during his hospital stay. He was treated with Toprol-XL 75 mg by mouth twice a day and Cozaar 25 mg by mouth daily. He will follow-up with his PCP next week for blood pressure check. Low-salt diet on discharge. General Appearance Alert, Oriented X3, Cooperative, No acute distress Lungs Clear to auscultation, Normal air movement Cardiovascular Regular Rate, Normal S1, Normal S2 Abdomen Soft, No tenderness Neurological grossly normal Psych/Mental Status Mental status NL, Mood NL Discharge Instructions/Meds For other recommendations regarding discharge diet, activity, followup, and discharge medications please see the patient's discharge instructions. Discharge condition: Fair, improved Greater than 30 min. was spent in the patient's discharge preparation including discharge interview and physical examination, progress note, discharge instructions, and discharge summary The patient was interviewed and examined on the day of discharge. E&M Codes Discharge: Inpt >30 min spent/[id number]
[2016-02-28] MEDS ORDERED: TOPROL XL50 MG PO (08:44)
[2016-02-28] MEDS ORDERED: COZAAR25 MG PO (08:44)
[2016-02-28] MEDS ORDERED: VITAMIN B-1 PO ×2 (08:45→08:46)
[2016-02-28] MEDS ORDERED: PRENATABS RX PO (08:45)
--- NOTE | 2016-02-28 08:48 | Provider's Discharge Care Plan ---
Problem, Goal, Plan Problem List 1. Alcohol abuse Goals: Improve disease control, Improve function, Improved health/wellness, Increase independence, Improve nutrition status, Prevent disease progress Instructions: Follow up as directed, Take meds as directed, No use of alcohol 2. Hypertension Goals: Improve disease control, Prevent disease progress Instructions: Follow up as directed, Take meds as directed, Avoid processed foods, low-salt diet 3. Liver function abnormality Goals: Improve disease control, Prevent disease progress Instructions: Follow up as directed, Take meds as directed, No use of alcohol
== END 2016-02-28 13:15 | disposition home or self-care (01) | DRG 897 ==
LOC: ED SRH 15:30 → TRANS SRH 21:06 → ACUTE2 SRH 22:30 → ACUTE3 SRH 02-27 14:38
PROVIDERS: ADMIT Family Medicine
PROC: 3E0234Z Introduction of Serum, Toxoid and Vaccine into Muscle, Percutaneous Approach (ICD-10-PCS; principal; 2016-02-28)
DX: F10.230 Alcohol dependence with withdrawal, uncomplicated (principal); G40.509 Epileptic seizures related to external causes, not intractable, without status epilepticus; Z23 Encounter for immunization; E87.6 Hypokalemia; E83.42 Hypomagnesemia; E83.39 Other disorders of phosphorus metabolism; K70.10 Alcoholic hepatitis without ascites; I10 Essential (primary) hypertension
CPT/HCPCS: 29243; 29244; 29247; 29250; 29257; 29263; 90004; 90074; 90100; 91286; 92010; 92235; 92530; 92720; 92740; 92760; 92761; 92762; 92763; 92764; 92765; 92766; 92767; 93140; 94060; 95059; 99787

== ENCOUNTER 2016-07-07 11:35 | Outpatient (CLI) | payer OTHER ==
[~2016-07-07 11:35] MED LIST changes: +COZAAR25 MG PO; +VITAMIN B-1 PO
--- NOTE | 2016-07-07 12:43 | DIAGNOSTIC IMAGING REPORT ---
PROCEDURE: XR LUMBAR SPINE 5 VIEWS INDICATION: PAIN FALL TECHNIQUE: Five views. COMPARISON: None. FINDINGS: Osteoarthritis with scattered osteophytes. No evidence of an acute process or fracture. No evidence of spondylolysis or spondylolisthesis. IMPRESSION: 1. Osteoarthritis, otherwise negative lumbar spine.
--- NOTE | 2016-07-07 12:45 | DIAGNOSTIC IMAGING REPORT ---
PROCEDURE: XR THORACIC SPINE 3 VIEWS INDICATION: PAIN FALL TECHNIQUE: Three views. COMPARISON: None. FINDINGS: Osteoarthritis with scattered osteophytes. No evidence of an acute process or fracture. No evidence of spondylolysis or spondylolisthesis. IMPRESSION: 1. Osteoarthritis otherwise negative thoracic spine.
== END 2016-07-07 23:00 ==
LOC: XR SRH 11:35
DX: M47.896 Other spondylosis, lumbar region (principal); M47.894 Other spondylosis, thoracic region